=== PATIENT | female | born 1950 | race Caucasian/White ===

== ENCOUNTER → 2017-01-12 | Day surgery (SDC) | payer MEDICARE ==
[~2017-01-12] MED LIST: IOHEXOL 180 MG/ML 20 ML VIAL (for RAD DIAG) OTHER ONE; LACTATED RINGER'S 1000 ML INJ 1,000 ML ONE; LIDOCAINE HCL 1% 50 ML VIAL INFIL ONE; PROPOFOL 500 MG/50 ML BTL IV ONE; TRIAMCINOLONE ACETONIDE 40 MG/ML VIAL ONE
--- NOTE | 2017-01-12 18:05 | TN ---
cc: RUDI SON DATE OF SURGERY 01/12/2017 PREOPERATIVE DIAGNOSES 1. Osteoarthritis of the right hip. 2. Arthrofibrosis of the right hip. POSTOPERATIVE DIAGNOSES 1. Osteoarthritis of the right hip. 2. Arthrofibrosis of the right hip. PROCEDURE 1. Arthrogram of the right hip. 2. Manipulation. 3. Injection of the right hip with Kenalog, 40 milligrams. 4. Use of fluoroscopy for needle placement. 5. Intraoperative x-ray of the right hip, two views. PROCEDURE The patient was brought to the operating room and anesthetized in the supine position. The right leg was scrubbed with alcohol followed by Hibiclens followed by ChloraPrep and draped sterilely. It was manipulated under anesthesia. Range of motion before manipulation was extension 0, flexion 90, internal rotation 20, external rotation 30, adduction 10, abduction 25. Post manipulation flexion was 120, extension 0, internal rotation 20, external rotation 35, abduction 35, adduction 25. The right hip was visualized under fluoroscopy. Under fluoroscopically-guided a 22 gauge spinal needle was advanced across the anterior aspect of the right hip joint and placed intraarticular. Arthrogram was performed. That study showed evidence of pitting and erosive changes with no leak of contrast. There was moderate loss of articular cartilage. No subchondral cystic changes were seen. The hip was then injected with 40 milligrams Kenalog and 3 cc of 1% lidocaine plain. The hip was gone through second range of motion. Intraoperative x-rays were obtained AP and lateral showing the arthrogram changes and no evidence of a fracture. The patient was awakened and taken to the recovery room in satisfactory condition. MD ISABEL Williamson/EDDI /5:42 PM /5:45 PM
== END | disposition home or self-care (01) ==
LOC: ESDC 14:03
PROVIDERS: ATTEND Orthopaedic Surgery Orthopaedic Surgery of the Spine
DX: M16.11 Unilateral primary osteoarthritis, right hip (principal); M24.651 Ankylosis, right hip
CPT/HCPCS: 01200; 27275; 73502; J3010; J3301; J7120; Q9965; 77002

== ENCOUNTER → 2017-03-01 | Outpatient (CLI) | payer MEDICARE ==
[~2017-03-01] MED LIST changes: +ASPI81TA23 PO; +FLUT1INH INH; -IOHEXOL 180 MG/ML 20 ML VIAL (for RAD DIAG) OTHER ONE; +KRIL500C2 PO; -LACTATED RINGER'S 1000 ML INJ 1,000 ML ONE; -LIDOCAINE HCL 1% 50 ML VIAL INFIL ONE; +LISI-519 PO; +METF500T PO; -PROPOFOL 500 MG/50 ML BTL IV ONE; +SIMV10TA PO; -TRIAMCINOLONE ACETONIDE 40 MG/ML VIAL ONE; +TUMS500C CHEW
[2017-03-01 09:15] LABS: AUTOMATED NEUTROPHIL # 4.6 TH/MM3 (1.8-7.7); BASOPHIL # 0.1 TH/MM3 (0-0.2); BASOPHIL % 1.1 % (0.0-2.0); EOSINOPHIL # 0.2 TH/MM3 (0-0.4); EOSINOPHIL % 2.2 % (0.0-4.0); HEMATOCRIT 33.2 % (35.0-46.0); HEMO FLAGS DIFF FINAL; LYMPH % 32.8 % (9.0-44.0); LYMPHOCYTE # 2.7 TH/MM3 (1.0-4.8); MEAN CELL VOLUME 91.9 FL (80.0-100.0); MEAN CORPUSCULAR HEMOGLOBIN 31.2 PG (27.0-34.0); MEAN CORPUSCULAR HGB CONC 33.9 % (32.0-36.0); MONO % 6.7 % (0.0-8.0); NEUT % 57.2 % (16.0-70.0); PLATELET COUNT 400 TH/MM3 (150-450); RED BLOOD COUNT 3.61 MIL/MM3 (4.00-5.30); WHITE BLOOD COUNT 8.1 TH/MM3 (4.0-11.0)
[2017-03-01 09:22] LABS: APTT (PATIENT) 28.5 SEC (24.3-30.1); INTERNATIONAL NORMALIZED RATIO 0.9 RATIO
[2017-03-01 09:44] LABS: BICARBONATE 25.1 MEQ/L (21.0-32.0)
[2017-03-01 10:14] LABS: BLOOD, URINE NEG (NEG); COMMENT (UR) CATH-CULT NOT IND; CULTURE IF INDICATED CATH CULTURE NOT IND; GLUCOSE,URINE NEG (NEG); KETONE, URINE NEG (NEG); NITRITE,URINE NEG (NEG); PH, URINE 5.5 (5.0-8.5); SQUAMOUS EPITHELIAL CELL URINE <1 /hpf (0-5); URINE COLOR YELLOW (YELLW/STRAW)
--- NOTE | 2017-03-01 11:33 | EKG ---
Date Performed: 03/01/2017 Time Performed: 08:35:01 PTAGE: 66 years EKG: Sinus rhythm NORMAL ECG NO PREVIOUS TRACING DOCTOR: Richard Pratt Interpretating Date/Time 03/01/2017 11:32:42
== END ==
LOC: CPRE 08:10
PROVIDERS: ATTEND Orthopaedic Surgery Orthopaedic Surgery of the Spine
DX: Z01.812 Encounter for preprocedural laboratory examination (principal); Z01.810 Encounter for preprocedural cardiovascular examination; M16.11 Unilateral primary osteoarthritis, right hip; Z79.01 Long term (current) use of anticoagulants
CPT/HCPCS: 36415; 80048; 81001; 85025; 85610; 85730; 93005

== ENCOUNTER 2017-03-16 10:30 | Inpatient (IN) | payer MEDICARE ==
[~2017-03-16] VITALS: Ht 160 cm; Wt 77.1 kg
[2017-04-01] MEDS ORDERED: SODIUM CHLORID 0.9% 500 ML IV PRN (08:30)
[2017-04-01] MEDS ORDERED: POVIDONE IODINE 5% (ANTISEPSIS KIT) 4 APPLICATIONS EACH NARE PRN (08:30)
[2017-04-01] MEDS ORDERED: CHLORHEXIDINE GLUCONATE 2 % 1 PACK (2 CLOTHS) TOPICAL PRN (08:30)
[2017-04-01] MEDS ORDERED: LACTATED RINGER'S 1000 ML IV PRN (08:30)
[2017-04-01] MEDS ORDERED: METOPROLOL TARTRATE 25 MG TAB PO PRN (08:30)
[2017-04-01] MEDS ORDERED: INSULIN HUMAN REGULAR 1,000 UNITS/10 ML VIAL SQ PRN (08:30)
[2017-04-01] MEDS ORDERED: POVIDONE IODINE 7.5% SCRUB 118 ML BOTTLE TOPICAL SCH (08:45)
[2017-04-01] MEDS ORDERED: VANCOMYCIN 1000 MG/NS 250 ML (for <70 kg) IV SCH ×2 (08:45)
[2017-04-01] MEDS ORDERED: ceFAZolin 2 GM PREMIX 50 ML IV SCH (08:45)
[2017-04-01] MEDS ORDERED: TRANEXAMIC ACID IV SCH (09:00)
[2017-04-01] MEDS ORDERED: EXPAREL PERI-ARTICULAR INJECTION (TOTAL VOL. 60 ML) P-ARTICULR SCH ×2 (09:00)
[2017-04-01] MEDS ORDERED: SODIUM CHLORIDE 0.9% IV SCH (09:00)
[2017-04-01] MEDS ORDERED: ACETAMINOPHEN 1000 MG/100 ML 100 ML IV ONE (09:54)
[2017-04-01] MEDS ORDERED: BUPIVACAINE HCL PF 0.5% 30 ML VIAL ONE (09:55)
[2017-04-01] MEDS ORDERED: ePHEDrine/NS 25 MG/5 ML SYRINGE IV ONE (12:00)
[2017-04-01] MEDS ORDERED: ONDANSETRON HCL 4 MG/2 ML VIAL IV PUSH ONE (12:00)
[2017-04-01] MEDS ORDERED: LACTATED RINGER'S 1000 ML INJ 1,000 ML IV ONE (12:00)
[2017-04-01] MEDS ORDERED: GLYCOPYRROLATE 1 MG/5 ML SYRINGE IV PUSH ONE (12:00)
[2017-04-01] MEDS ORDERED: PROPOFOL 200 MG/20 ML AMP IV ONE (12:00)
[2017-04-01] MEDS ORDERED: ROCURONIUM INJ 50 MG/5 ML SYRINGE IV PUSH ONE (12:00)
[2017-04-01] MEDS ORDERED: ceFAZolin INJ 1,000 MG VIAL IV ONE (12:00)
[2017-04-01] MEDS ORDERED: DEXAMETHASONE SOD PHOS 4 MG/ML VIAL IV ONE (12:00)
[2017-04-01] MEDS ORDERED: NEOSTIGMINE 5 MG/5 ML SYRINGE IV PUSH ONE (12:00)
[2017-04-01] MEDS ORDERED: PHENYLEPH/NS 1000 MCG/10 ML SYR IV ONE (12:00)
[2017-04-01] MEDS ORDERED: HYDR-3288 PO (12:04)
[2017-04-01] MEDS ORDERED: ASPI325T33 PO (12:04)
--- NOTE | 2017-04-01 12:08 | PD.OP ---
cc: Dami Garcia MD Operative Report Date of Surgery: Apr 01, 2017 Preoperative Diagnosis: Osteoarthritis right hip, severe Postoperative Diagnosis: Same Procedure: Right total hip replacement arthroplasty, direct anterior exposure Anesthesia: Gen. Surgeon: Dami Garcia Film Critic(s): SINDY Galicia Operation and Findings: EBL: 200 cc INDICATION: This patient presents with significant hip pain related to severe osteoarthritis the right hip with acetabular dysplasia. Despite extensive conservative care this patient continues to be painful and now presents for surgical treatment. NOTE: Alexandria Galicia PA-C was present for the entire surgical procedure as my endodontic assistant. In my medical opinion her skill and care was necessary for the proper management of this patient. COMPONENTS: COMPANY: [employer] CUP: [place], 50, 100 series, gription surface LINER: Altrx 32, neutral STEM: [place], size 9, standard offset, hydroxyapatite-coated HEAD: Metal, 32, +1.0, 04/08 taper PROCEDURE: This patient was brought to the operating room and anesthetized in the supine position and positioned on the fracture table with both legs held extended. The right hip and leg was scrubbed with alcohol followed by Hibiclens followed by ChloraPrep and draped sterilely. Antibiotics were given within routine time window and a timeout was done. A 4 inch incision was made starting 2 cm distal and 2 cm lateral to the anterior superior iliac spine. The fascia elio was opened longitudinally. The interval between the fascia elio and the rectus was opened down to the capsule of the hip joint. Retractors were positioned allowing good visualization of the capsule. This was opened longitudinally and flaps were created. Stay sutures were utilized. Exposure was excellent. The neck was cut at the proper location using fluoroscopy as a guide. The head was removed. Deep retractors were positioned allowing good visualization of the acetabulum. Acetabulum was deepened down to the floor starting with a proper size reamer and reaming up to 49 mm. A trial was utilized. Fluoroscopy was used to check position and confirmed satisfactory alignment. The rim was reamed with a 50 mm reamer and the final cup was positioned in approximately 20 of anteversion and 40-45 of abduction. Position was satisfactory. A single hole eliminator was positioned followed by the final liner. The lifting hook was utilized. The leg was dropped to the floor, maximally externally rotated and brought across the midline. Retractors were positioned. A box osteotome was utilized followed by progressive broaching to the proper stem size. Trial reduction showed excellent alignment and fit. With 60 of external rotation the leg was dropped to the floor without evidence of anterior subluxation. The wound was irrigated. The final stem was inserted and was found to be very stable. The final reduction using the final head. Stability was as previously noted. Intraoperative x-rays were taken. The wound was irrigated copiously. Hemostasis was controlled. Local anesthesia was utilized. The capsule was repaired with #2 Tycron sutures. The fascia elio was repaired with running 0 PDS on a loop. Subcutaneous tissue was approximated with 2-0 Vicryl and skin with running intradermal 3-0 Vicryl followed by Steri-Strips. A sterile dressing was applied. The patient was awakened and taken to the recovery room in satisfactory condition. FINDINGS: There was severe osteoarthritis of the right hip. There was a detached torn degenerative labrum. There was moderate acetabular dysplasia. The final solution appear to be very satisfactory Dami Garcia MD Apr 01, 2017 12:08
[2017-04-01] MEDS ORDERED: MORPHINE SULFATE 8 MG/ML INJ IM PRN (12:15)
[2017-04-01] MEDS ORDERED: MISCELLANEOUS NURSING INFORMATION XX PRN (12:15)
[2017-04-01] MEDS ORDERED: MORPHINE SULFATE 30 MG/30 ML PCA IV SCH (12:15)
[2017-04-01] MEDS ORDERED: MISCELLANEOUS PHARMACY INFORMATION XX ONE (12:15)
[2017-04-01] MEDS ORDERED: NALOXONE HCL 0.4 MG/ML AMP IV PUSH PRN (12:15)
[2017-04-01] MEDS ORDERED: Post-op Orders (for Pharmacy) XX ONE (12:15)
[2017-04-01] MEDS ORDERED: ACETAMINOPHEN/HYDROcodone 325 MG/7.5 MG TAB PO PRN (12:15)
--- NOTE | 2017-04-01 12:15 | RADRPT ---
EXAM DATE/TIME: 04/01/2017 10:52 [facility] COMPARISON: No previous studies available for comparison. INDICATIONS : Right total hip arthroplasty. MEDICAL HISTORY : Unobtainable. SURGICAL HISTORY : Unobtainable. ENCOUNTER: Initial ACUITY: 1 day PAIN SCORE: Non-responsive. LOCATION: Right hip CONCLUSION: Fluoroscopic images during right hip arthroplasty. Twan Scott MD on April 01, 2017 at 12:13 Board Certified Radiologist. This report was verified electronically.
[2017-04-01] MEDS ORDERED: GENTAMICIN SULFATE 80 MG/2 ML VIAL ONE (12:21)
[2017-04-01] MEDS ORDERED: DO NOT ADM ANY ANTICOAGULANT DRUGS PRN (12:35)
[2017-04-01] MEDS ORDERED: *morphine SULFATE 8 MG/ML PERIprocedure ONLY ONE ×2 (12:39→13:03)
[2017-04-01] MEDS: LACTATED RINGER'S 1000 ML INJ 1,000 ML IV SCH (13:00)
[2017-04-01] MEDS ORDERED: *HYDROmorphone PF 1 MG VIAL PERIprocedural Use ONLY ONE (13:13)
[2017-04-01] MEDS: PCA - TOTAL MG MORPHINE DELIVERED PER SHIFT SCH ×2 (14:00→22:00)
[2017-04-01 14:30] VITALS: BP 107/63; PULSE 80; RESP 16; TEMP 96.3; O2SAT 94
[2017-04-01] MEDS: ONDANSETRON HCL 4 MG/2 ML VIAL IV PUSH PRN (17:35)
[2017-04-01] MEDS: metFORMIN HCL 500 MG TAB PO SCH (17:35)
[2017-04-01 20:00] VITALS: BP 109/59; PULSE 83; RESP 16; TEMP 98.1; O2SAT 99
[2017-04-01] MEDS: MAGNESIUM HYDROXIDE SUSP 30 ML CUP PO SCH (20:53)
[2017-04-01] MEDS: SENNOSIDES 8.6 MG TAB PO SCH (20:53)
[2017-04-01] MEDS: PRAVASTATIN SOD 20 MG TAB PO SCH (20:53)
[2017-04-01] MEDS ORDERED: ASPIRIN EC 325 MG TABEC PO SCH (21:00)
[2017-04-02] VITALS: BP 100/62; PULSE 79; RESP 17; TEMP 97; O2SAT 99
[2017-04-02] MEDS: LACTATED RINGER'S 1000 ML INJ 1,000 ML IV SCH ×3 (03:50→20:05)
[2017-04-02 04:00] VITALS: BP 100/50; PULSE 87; RESP 16; TEMP 98.7; O2SAT 97
[2017-04-02] MEDS: PCA - TOTAL MG MORPHINE DELIVERED PER SHIFT SCH ×3 (06:00→20:05)
[2017-04-02 07:02] LABS: HEMATOCRIT 26.4 % (35.0-46.0); REVIEW FLAG FINAL
[2017-04-02 07:17] VITALS: BP 110/51; PULSE 78; RESP 16; TEMP 99; O2SAT 96
--- NOTE | 2017-04-02 08:02 | HHI.DCPOC ---
Discharge Care Plan Diagnosis: (1) Osteoarthritis of right hip Your Health Problems Are: Difficulty with ADL Incision/Drains Inflammation Swelling Goals to Promote Your Health * To prevent worsening of your condition and complications * To maintain your health at the optimal level Directions to Meet Your Goals Take your medications as prescribed Follow your dietary instruction Follow activity as directed Keep your appointments as scheduled Take your immunizations and boosters as scheduled If your symptoms worsen call your PCP, if no PCP go to Urgent Care Center or Emergency Room Smoking is Dangerous to Your Health. Avoid second hand smoke Call the 24-hour hour crisis hotline for domestic abuse at Ashlee Ramires Apr 02, 2017 08:02
[2017-04-02] MEDS ORDERED: WALKER WHEELS/F1 MIS (08:03)
--- NOTE | 2017-04-02 08:03 | HHI.DS ---
Discharge Summary Admission Date Apr 01, 2017 at 07:42 Discharge Date: Apr 04, 2017 Admitting Diagnosis see below Diagnosis: (1) Osteoarthritis of right hip Diagnosis: Principal ICD Codes: M16.11 - Unilateral primary osteoarthritis, right hip Procedures Right total hip arthroplasty, direct anterior approach Brief History This is a 66 year old female patient CBC/BMP: 04/02/17 0630 Significant Findings Laboratory Tests Test 04/02/17 06:30 Hemoglobin 9.1 GM/DL (11.6-15.3) Hematocrit 26.4 % (35.0-46.0) Hospital Course SNF [facility], ASA 325 Discharge Disposition: Discharge to SNF Discharge Instructions Diet Instructions: Diabetic Diet, High Fiber Diet Activities You Can Perform: Weight Bearing as [place] Activities to Avoid: Strenuous Activity Additional Activity Instruc.: DELMI precautions New Medications: Aspirin DR (Aspirin EC) 325 Mg Tabdr 325 MG PO BID for Prevent Blood Clot for 30 Days, #60 TAB 0 Refills Hydrocodone-Acetaminophen ([place]) 7.5-325 mg Tab 1 TAB PO Q4H PRN for PAIN, #50 TAB 0 Refills Continued Medications: Calcium Carbonate (Antacid) (Tums) 500 Mg Chew 500 MG CHEW PRN for HEARTBURN, TAB 0 Refills Fluticasone-Vilanterol Inh (Breo Ellipta Inh) 100-25 Mcg/Act Inh 1 PUFF INH DAILY, #1 INHALER 0 Refills Use daily at the same time. Krill Oil (Krill Oil) 500 Mg Capsule 350 MG PO DAILY Lisinopril (Lisinopril) 5 Mg Tab 5 MG PO DAILY for Blood Pressure Management, #30 TAB 0 Refills Metformin (Metformin) 500 Mg Tab 500 MG PO BIDPC for Blood Sugar Management, #60 TAB 0 Refills Simvastatin (Simvastatin) 10 Mg Tab 10 MG PO HS for Cholesterol Management, #30 TAB 0 Refills Discontinued Medications: Aspirin DR (Aspirin EC) 81 Mg Tabdr 81 MG PO BID, TAB 0 Refills Ashlee Ramires Apr 02, 2017 08:03
[2017-04-02] MEDS ORDERED: COMMODE 3-IN-11 MIS (08:04)
--- NOTE | 2017-04-02 08:07 | PD.ORT.PN ---
Subjective Subjective Remarks Doing well. Moderate right thigh aching. No radiating pain below knee. Mild nausea mostly associated with pain pills. No complaints otherwise. Has no family at home so is considering rehab. Denies an CP or SOB. Objective Vitals Vital Signs Date Time Temp Pulse Resp B/P (MAP) Pulse Ox O2 Delivery O2 Flow Rate FiO2 04/02/17 04:00 98.7 87 16 100/50 (67) 97 04/02/17 00:00 97.0 79 17 100/62 (75) 99 04/01/17 21:00 Nasal Cannula 2.00 04/01/17 20:00 98.1 83 16 109/59 (76) 99 04/01/17 14:30 96.3 80 16 107/63 (78) 94 04/01/17 13:30 78 12 114/55 (74) 100 Nasal Cannula 3 04/01/17 13:15 79 15 116/60 (78) 100 Nasal Cannula 3 04/01/17 13:01 12 04/01/17 13:00 81 12 111/62 (78) 100 Nasal Cannula 3 04/01/17 12:45 85 13 108/54 (72) 97 Nasal Cannula 3 04/01/17 12:35 97.6 90 12 112/57 (75) 96 Nasal Cannula 3 04/01/17 08:30 98.5 86 20 119/64 (82) 97 I/O 04/01/17 04/01/17 04/01/17 04/02/17 04/02/17 04/02/17 07:00 15:00 23:00 07:00 15:00 23:00 Intake Total 1500 ml 746 ml 1402 ml Output Total 3800 ml 100 ml 1350 ml Balance -2300 ml 646 ml 52 ml Intake Oral 550 ml IV Total 1500 ml 746 ml 852 ml Output Urine Total 400 ml 1350 ml Emesis 100 ml Estimated Blood Loss 400 ml Other 3000 ml Result Diagram: 04/02/17 0630 Procedures Right total hip arthroplasty, direct anterior approach Objective Remarks Sitting up in bed NAD VSS RLE Dressing c/d/i, minimal SS drainage, mild swelling, no erythema +motor at, +sens, +nvi neg homans RLE, calf supple Assessment & Plan Ortho Post Op Day #: 1 Problem List: (1) Osteoarthritis of right hip ICD Codes: M16.11 - Unilateral primary osteoarthritis, right hip Qualifiers: Qualified Codes: M16.11 - Unilateral primary osteoarthritis, right hip Assessment and Plan pod#1 s/p R DELMI, 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 Mild postop anemia. Consider iron supplementation once discharged. PT - WBAT RLE. Anterior delmi precautions. ASA 325 2 tabs daily for dvt prophylaxis Hold dressing changes unless saturated. D/C planning, likely SNF wednesday as pt does not have family at home. F/U in 2 weeks as scheduled. DME written. Ashlee Ramires Apr 02, 2017 08:07
[2017-04-02] MEDS: FLUTICASONE 100 MCG/VILANTEROL 25 MCG INHALER INH SCH (09:00)
[2017-04-02] MEDS: ONDANSETRON HCL 4 MG/2 ML VIAL IV PUSH PRN (09:24)
[2017-04-02] MEDS: LISINOPRIL 5 MG TAB PO SCH (09:24)
[2017-04-02] MEDS: MAGNESIUM HYDROXIDE SUSP 30 ML CUP PO SCH ×2 (09:24→20:03)
[2017-04-02] MEDS: ASPIRIN EC 325 MG TABEC PO SCH ×2 (09:25→20:03)
[2017-04-02] MEDS: metFORMIN HCL 500 MG TAB PO SCH ×2 (09:25→17:51)
[2017-04-02 11:22] VITALS: BP 98/57; PULSE 82; RESP 16; TEMP 98.6; O2SAT 93
[2017-04-02] MEDS: ACETAMINOPHEN/HYDROcodone 325 MG/7.5 MG TAB PO PRN ×3 (13:02→22:48)
[2017-04-02 16:00] VITALS: BP 111/53; PULSE 91; RESP 16; TEMP 97.9; O2SAT 93
[2017-04-02 20:00] VITALS: BP 103/69; PULSE 84; RESP 17; TEMP 99.1; O2SAT 95
[2017-04-02] MEDS: SENNOSIDES 8.6 MG TAB PO SCH (20:03)
[2017-04-02] MEDS: PRAVASTATIN SOD 20 MG TAB PO SCH (20:03)
[2017-04-03] VITALS: BP 98/48; PULSE 87; RESP 16; TEMP 98.7; O2SAT 95
[2017-04-03] MEDS: ACETAMINOPHEN/HYDROcodone 325 MG/7.5 MG TAB PO PRN ×5 (03:12→22:28)
[2017-04-03] MEDS: PCA - TOTAL MG MORPHINE DELIVERED PER SHIFT SCH ×2 (04:55→08:44)
--- NOTE | 2017-04-03 07:37 | PD.ORT.PN ---
Subjective Subjective Remarks pt is doing well, has no complaints Objective Vitals Vital Signs Date Time Temp Pulse Resp B/P (MAP) Pulse Ox O2 Delivery O2 Flow Rate FiO2 04/03/17 00:00 98.7 87 16 98/48 (65) 95 04/02/17 20:00 99.1 84 17 103/69 (80) 95 04/02/17 16:00 97.9 91 16 111/53 (72) 93 04/02/17 11:22 98.6 82 16 98/57 (71) 93 I/O 04/02/17 04/02/17 04/02/17 04/03/17 04/03/17 04/03/17 07:00 15:00 23:00 07:00 15:00 23:00 Intake Total 1402 ml 720 ml 600 ml 720 ml Output Total 1350 ml Balance 52 ml 720 ml 600 ml 720 ml Intake Oral 550 ml 720 ml 600 ml 720 ml IV Total 852 ml Output Urine Total 1350 ml # Voids 3 2 2 # Bowel Movements 0 Result Diagram: 04/02/17 0630 Procedures Right total hip arthroplasty, direct anterior approach Objective Remarks Seen by Dr. Donal Garcia Sitting up in bed NAD VSS RLE Dressing c/d/i, minimal SS drainage, mild swelling, no erythema +motor at, +sens, +nvi neg homans RLE, calf supple Assessment & Plan Problem List: (1) Osteoarthritis of right hip ICD Codes: M16.11 - Unilateral primary osteoarthritis, right hip Qualifiers: Qualified Codes: M16.11 - Unilateral primary osteoarthritis, right hip Assessment and Plan pod#2 s/p R DELMI, anterior Mild postop anemia. Consider iron supplementation once discharged. PT - WBAT RLE. Anterior delmi precautions. ASA 325 2 tabs daily for dvt prophylaxis Hold dressing changes unless saturated. D/C planning, likely SNF wednesday as pt does not have family at home. F/U in 2 weeks as scheduled. DME written nursing staff asking for creatine clearance lab being ordered since she is on Metformin . Deepali Betancourt Apr 03, 2017 07:37
[2017-04-03 07:44] VITALS: BP 106/57; PULSE 87; RESP 16; TEMP 98.9; O2SAT 92
[2017-04-03] MEDS: metFORMIN HCL 500 MG TAB PO SCH ×2 (08:42→17:59)
[2017-04-03] MEDS: MAGNESIUM HYDROXIDE SUSP 30 ML CUP PO SCH ×2 (08:43→20:01)
[2017-04-03] MEDS: ASPIRIN EC 325 MG TABEC PO SCH ×2 (08:43→20:01)
[2017-04-03] MEDS: LISINOPRIL 5 MG TAB PO SCH (08:44)
[2017-04-03] MEDS: FLUTICASONE 100 MCG/VILANTEROL 25 MCG INHALER INH SCH (08:44)
[2017-04-03 12:00] VITALS: BP 115/56; PULSE 93; RESP 16; TEMP 97.1; O2SAT 95
[2017-04-03] MEDS: LACTATED RINGER'S 1000 ML INJ 1,000 ML IV SCH (14:52)
[2017-04-03 16:00] VITALS: BP 114/57; PULSE 85; RESP 16; TEMP 98.5; O2SAT 95
[2017-04-03 20:00] VITALS: BP 96/54; PULSE 92; RESP 18; TEMP 98.4; O2SAT 95
[2017-04-03] MEDS: PRAVASTATIN SOD 20 MG TAB PO SCH (20:00)
[2017-04-03] MEDS: SENNOSIDES 8.6 MG TAB PO SCH (20:01)
[2017-04-04] VITALS: BP 106/57; PULSE 84; RESP 18; TEMP 98.8; O2SAT 95
[2017-04-04 07:28] VITALS: BP 101/61; PULSE 85; RESP 16; TEMP 97.8; O2SAT 97
--- NOTE | 2017-04-04 08:18 | PD.ORT.PN ---
Subjective Subjective Remarks pt is doing well, has no complaints ready to be discharged to a SNF today Objective Vitals Vital Signs Date Time Temp Pulse Resp B/P (MAP) Pulse Ox O2 Delivery O2 Flow Rate FiO2 04/04/17 00:00 98.8 84 18 106/57 (73) 95 04/03/17 20:00 98.4 92 18 96/54 (68) 95 04/03/17 16:00 98.5 85 16 114/57 (76) 95 04/03/17 12:00 97.1 93 16 115/56 (75) 95 I/O 04/03/17 04/03/17 04/03/17 04/04/17 04/04/17 04/04/17 07:00 15:00 23:00 07:00 15:00 23:00 Intake Total 720 ml 720 ml 240 ml Balance 720 ml 720 ml 240 ml Intake Oral 720 ml 720 ml 240 ml # Voids 2 3 3 # Bowel Movements 0 Result Diagram: 04/02/17 0630 Procedures Right total hip arthroplasty, direct anterior approach Objective Remarks Seen by Dr. Donal Garcia NAD VSS RLE Dressing c/d/i, minimal SS drainage, mild swelling, no erythema +motor at, +sens, +nvi neg homans RLE, calf supple Assessment & Plan Problem List: (1) Osteoarthritis of right hip ICD Codes: M16.11 - Unilateral primary osteoarthritis, right hip Qualifiers: Qualified Codes: M16.11 - Unilateral primary osteoarthritis, right hip Assessment and Plan pod# 3 s/p R DELMI, anterior Mild postop anemia. Consider iron supplementation once discharged. PT - WBAT RLE. Anterior delmi precautions. ASA 325 2 tabs daily for dvt prophylaxis Hold dressing changes unless saturated. discharge to SNF today, orthopedically stable F/U in 2 weeks as scheduled. DME written Deepali Betancourt Apr 04, 2017 08:18
[2017-04-04] MEDS: FLUTICASONE 100 MCG/VILANTEROL 25 MCG INHALER INH SCH (09:00)
[2017-04-04] MEDS: LISINOPRIL 5 MG TAB PO SCH (09:00)
[2017-04-04] MEDS: MAGNESIUM HYDROXIDE SUSP 30 ML CUP PO SCH (09:00)
[2017-04-04] MEDS: ASPIRIN EC 325 MG TABEC PO SCH (11:01)
[2017-04-04] MEDS: metFORMIN HCL 500 MG TAB PO SCH (11:02)
[2017-04-04] MEDS: ACETAMINOPHEN/HYDROcodone 325 MG/7.5 MG TAB PO PRN ×2 (11:03→14:47)
[2017-04-04 12:00] VITALS: BP 108/59; PULSE 91; RESP 16; TEMP 98.8; O2SAT 97
[2017-04-04 12:03] VITALS: RESP 16
== END 2017-04-04 15:21 | DRG 470 ==
LOC: HSDI 04-01 07:42 → N06B 04-01 14:15
PROVIDERS: ADMIT Orthopaedic Surgery Orthopaedic Surgery of the Spine; ATTEND Orthopaedic Surgery Orthopaedic Surgery of the Spine
PROC: 0SR901A Replacement of Right Hip Joint with Metal Synthetic Substitute, Uncemented, Open Approach (ICD-10-PCS; principal; 2017-04-01 10:03)
DX: M16.11 Unilateral primary osteoarthritis, right hip (principal); I10 Essential (primary) hypertension; E11.9 Type 2 diabetes mellitus without complications; D64.9 Anemia, unspecified; E78.5 Hyperlipidemia, unspecified; K21.9 Gastro-esophageal reflux disease without esophagitis; Q65.89 Other specified congenital deformities of hip; F17.210 Nicotine dependence, cigarettes, uncomplicated
CPT/HCPCS: 73502; 76000; 85014; 85018; 86850; 86900; 86901; 86920; 94150; C1776; C9290; J0131; J0690; J1100; J1170; J1580; J2270; J2370; J2405; J2710; J3010; J3370; J7050; J7120